=== PATIENT | female | born 1940 | race Caucasian/White ===

== ENCOUNTER 2017-09-07 11:52 | Emergency (ER) | payer MEDICARE, OTHER ==
[2017-09-07] MEDS ORDERED: SODIUM CHLORIDE 0.9% (FLUSH) 10 ML SYG IV PRN (12:20)
--- NOTE | 2017-09-07 12:28 | ED.PDOC ---
History of Present Illness - General Chief Complaint: Respiratory Problem Stated Complaint: headache, head congestion Time Seen by Provider: 09/07/17 12:20 Source: patient Exam Limitations: no limitations - History of Present Illness Initial Comments: PT PRESENTS TO THE ED WITH COMPLAINT OF COUGH, CONGESTION, AND SUBJECTIVE FEVER X 4 DAYS. PT ALSO REPORTS NAUSEA AND STATES SHE DID NOT TAKE HER MEDICATION THIS AM. PT FOUND TO BE IN AFIB WITH RVR ON EKG TODAY, HOWEVER, DENIES SYMPTOMS SUCH PALPITATIONS, CHEST PAIN OR SOB. Severity: moderate Improving Factors: nothing Worsening Factors: nothing Associated Symptoms: cough, fever/chills, nasal congestion Allergies/Adverse Reactions: Allergies NO KNOWN ALLERGY Allergy (Verified 09/07/17 12:16) Home Medications: Ambulatory Orders Apixaban [Eliquis] 5 mg PO BID #60 tab 04/18/15 diltiaZEM HCL CD [Cardizem Cd] 240 mg PO DAILY #30 cap 04/18/15 Azithromycin Tab [Zithromax] 250 mg PO QD #4 tab 09/07/17 Metoprolol Tartrate [Lopressor] 50 mg PO BIDFD 09/07/17 Ondansetron [Zofran Odt] 8 mg PO TID PRN #20 tab 09/07/17 Review of Systems - Review of Systems Constitutional: States: fever. Denies: chills EENTM: States: nose congestion. Denies: throat pain Respiratory: States: cough. Denies: short of breath Cardiology: Denies: chest pain, palpitations Gastrointestinal/Abdominal: States: nausea. Denies: abdominal pain, vomiting Musculoskeletal: Denies: joint pain, joint swelling Skin: Denies: dryness, lesions Neurological: States: headache. Denies: paresthesia Endocrine: States: no symptoms reported Hematologic/Lymphatic: States: no symptoms reported Past Medical History (General) - Patient Medical History Hx Seizures: No Hx Stroke: No Hx Dementia: No Hx Asthma: No Hx of COPD: No Hx Cardiac Disorders: Yes - A fib Hx Congestive Heart Failure: No Hx Pacemaker: No Hx Hypertension: Yes Hx Thyroid Disease: No Hx Diabetes: No Hx Gastroesophageal Reflux: No Hx Renal Disease: No Hx Cancer: No Hx of HIV: No Hx Hepatitis C: No Hx MRSA: No Surgical History: cholecystectomy, Hysterectomy, other - Vaccination History Hx Tetanus, Diphtheria Vaccination: Yes Hx Influenza Vaccination: Yes Hx Pneumococcal Vaccination: Yes - Social History Hx Tobacco Use: No - Non-smoker Hx Chewing Tobacco Use: No Hx Alcohol Use: No Hx Substance Use: No Hx Substance Use Treatment: No Hx Depression: No Hx Physical Abuse: No Hx Emotional Abuse: No Hx Suspected Abuse: No - Female History Patient is a Female of Child Bearing Age (10 -59 yrs old): No Patient : No Family Medical History - Family History Mother Living Status: Hx Family Congestive Heart Failure: Yes Hx Family Hypertension: Yes Physical Exam - Physical Exam General Appearance: Alert, Comfortable, No apparent distress Eye Exam: bilateral normal ENT Exam: normal ENT inspection, nasal congestion Neck: non-tender, full range of motion, supple Respiratory: lungs clear, normal breath sounds, no respiratory distress Cardiovascular/Chest: no murmur, tachycardia, irregularly irregular Gastrointestinal/Abdominal: non tender, soft Extremity: non-tender, normal inspection Neurologic: alert, normal mood/affect, oriented x 3 Skin Exam: normal color, warm/dry Progress - Progress Progress: 09/07/17 14:25 PT RESTING COMFORTABLY, HR NOW 80S-100S AFTER 25MG IV CARDIZEM. LABS AND CXR FINDINGS DISCUSSED WITH PATIENT. DISCUSSED THE POSSIBILITY OF INFILTRATE VS ATELECTASIS ON CXR. - Results/Orders Results/Orders: 09/07/17 12:20 IV Care:Saline Lock per Protoc QSHIFT Telemetry .ONCE Sodium Chloride 0.9% (Flush) [Saline Flush Syringe] 10 ml IV PRN PRN EKG Stat Pulse Ox Stat 09/07/17 12:21 EKG Assessment ONCE Pulse Oximetry Assessment DAILY 09/07/17 14:24 Azithromycin Tab [Zithromax Tab] 500 mg PO ONCE ONE Laboratory Results - last 24 hr 09/07/17 12:30 WBC 9.2 RBC 4.40 Hgb 13.7 Hct 41.0 MCV 93.2 MCH 31.2 H MCHC 33.5 RDW 15.1 H Plt Count 262 MPV 7.7 Absolute Neuts (auto) 5.90 Absolute Lymphs (auto) 2.00 Absolute Monos (auto) 1.10 H Absolute Eos (auto) 0.20 Absolute Basos (auto) 0.10 Neutrophils % 63.8 Lymphocytes % 21.3 Monocytes % 11.8 H Eosinophils % 2.3 Basophils % 0.8 PT 13.5 H INR 1.200 PTT (SP) 32.8 Sodium 137 Potassium 4.0 Chloride 104 Carbon Dioxide 21 Anion Gap 16.0 BUN 12 Creatinine 1.22 BUN/Creatinine Ratio 9.8 L Random Glucose 122 H Serum Osmolality 274.9 L Calcium 9.4 Magnesium 2.1 Creatine Kinase 102 CK-MB (CK-2) 1.0 CK-MB (CK-2) % Not Reportable Troponin I < 0.02 B-Natriuretic Peptide 256.0 H* - EKG/XRAY/CT EKG: Atrial, Fibrillation, RVR - @140BPM, OTHERWISE NL INTERVALS, NL AXIS, ST depression - MINIMAL IN IN INFERIOR LATERAL LEADS, Unchanged from - 04/17/15 XRAY: chest - ATELECTASIS AND SCARRING ON RIGHT LUNG FIELD Departure - Departure Clinical Impression: Pneumonia, Atrial fibrillation with rapid ventricular response, Nausea Time of Disposition: 14:28 Disposition: Discharge to Home or Self Care Condition: Good Departure Forms: ED Discharge - Pt. Copy, Patient Portal Self Enrollment Instructions: DI for Pneumonia -- Adult, DI for Nausea -- Adult, DI for Atrial Fibrillation Referrals: Sajan Macdonald MD [Primary Care Provider] - 1-5 Days Prescriptions: Azithromycin Tab [Zithromax] 250 mg PO QD #4 tab Ondansetron [Zofran Odt] 8 mg PO TID PRN #20 tab PRN Reason: Nausea/Vomiting Home Medications: Ambulatory Orders Apixaban [Eliquis] 5 mg PO BID #60 tab 04/18/15 diltiaZEM HCL CD [Cardizem Cd] 240 mg PO DAILY #30 cap 04/18/15 Azithromycin Tab [Zithromax] 250 mg PO QD #4 tab 09/07/17 Metoprolol Tartrate [Lopressor] 50 mg PO BIDFD 09/07/17 Ondansetron [Zofran Odt] 8 mg PO TID PRN #20 tab 09/07/17
--- NOTE | 2017-09-07 12:49 | RAD ---
EXAM DESCRIPTION: Chest,1 View CLINICAL HISTORY: 66-year-old, female, A. fib COMPARISON: None available IMPRESSION: Single portable upright frontal view of the chest. Cardiac silhouette is borderline enlarged without congestive failure. Calcific atherosclerosis noted of the aortic arch. Linear opacity is seen extending from the left hilar region to the left upper lobe, most likely representing scar tissue. Mild linear opacity seen in the left retrocardiac region and left lung base, most likely representing subsegmental atelectasis. Right lung is clear. Bilateral costophrenic angles are sharp. No pneumothorax. Healed fracture with callus formation noted of the distal third of the left clavicle. Electronically signed by: Sonido Sultana MD 09/07/2017 12:48 PM COMIC WRITER
[2017-09-07 13:08] VITALS: TEMP 99.6
[2017-09-07] MEDS ORDERED: AZITHROMYCIN 250 MG TAB PO ONE (14:24)
[2017-09-07 14:55] VITALS: BP 133/78; O2SAT 95
== END 2017-09-07 14:52 | disposition home or self-care (01) ==
LOC: ER 11:52
DX: J18.9 Pneumonia, unspecified organism (principal); I48.91 Unspecified atrial fibrillation; R11.0 Nausea; I10 Essential (primary) hypertension; Z79.01 Long term (current) use of anticoagulants; Z79.899 Other long term (current) drug therapy
CPT/HCPCS: 36415; 71010; 80048; 82550; 82553; 83880; 84484; 85025; 85610; 85730; 87502; 93005; 94760; Q0144

== ENCOUNTER → 2020-04-10 | Outpatient (CLI) | payer MEDICARE | LOC: GMAJ 10:49 | PROVIDERS: ATTEND Family Medicine | DX: I10 Essential (primary) hypertension (principal) ==